=== PATIENT | male | born 1965 | race Caucasian/White ===

== ENCOUNTER 2018-09-28 17:09 | Observation (INO) | payer SELFPAY ==
[2018-09-28] MEDS ORDERED: Sodium Chloride 0.9% 1,000 ML IV STA ×2 (17:41)
--- NOTE | 2018-09-28 18:03 | ED PDOC ---
HPI: General Adult Time Seen by Provider: 09/28/18 17:40 Chief Complaint (Nursing): Weakness/Neurological Deficit Chief Complaint (Provider): Generalized weakness History Per: Patient History/Exam Limitations: no limitations Additional Complaint(s): Pt reports thirst, frequent urination, weight loss and generalized weakness X 2 weeks. Denies fever, CP, SOB, nausea, vomiting, abdominal pain, diarrhea. Past Medical History Reviewed: Nursing Documentation, Vital Signs Vital Signs: Last Vital Signs Temp 98.3 F 09/28/18 17:15 Pulse 71 09/28/18 17:15 Resp 18 09/28/18 17:15 BP 129/74 09/28/18 17:15 Pulse Ox 100 09/28/18 17:15 - Medical History PMH: HTN - Surgical History Surgical History: No Surg Hx - Family History Family History: States: Unknown Family Hx - Social History Current smoker - smoking cessation education provided: No Alcohol: None - Home Medications Home Medications: Ambulatory Orders Medication Instructions Recorded Atorvastatin [Lipitor] 10 mg PO DIN #30 tab 09/29/18 metFORMIN [glucOPHAGE] 500 mg PO BIDWM #60 tab 09/29/18 - Allergies Allergies/Adverse Reactions: Allergies Allergy/AdvReac Type Severity Reaction Status Date / Time No Known Allergies Allergy Verified 09/28/18 17:15 Review of Systems Constitutional: Positive for: Weakness, Malaise, Weight loss. Negative for: Fever, Chills Cardiovascular: Negative for: Chest Pain, Palpitations Respiratory: Negative for: Cough, Shortness of Breath Gastrointestinal: Negative for: Nausea, Vomiting, Abdominal Pain, Diarrhea Genitourinary Male: Positive for: Frequency Musculoskeletal: Negative for: Back Pain Skin: Negative for: Rash, Lesions Neurological: Negative for: Headache Physical Exam - Reviewed Nursing Documentation Reviewed: Yes Vital Signs Reviewed: Yes - Physical Exam Appears: Positive for: Well, No Acute Distress Head Exam: Positive for: ATRAUMATIC, NORMAL INSPECTION Skin: Positive for: Normal Color, Warm, Dry Eye Exam: Positive for: Normal appearance, EOMI, PERRL ENT: Positive for: Other (MM dry) Neck: Positive for: Normal, Painless ROM, Supple Cardiovascular/Chest: Positive for: Regular Rate, Rhythm Respiratory: Positive for: Normal Breath Sounds. Negative for: Rales, Rhonchi, Wheezing Gastrointestinal/Abdominal: Positive for: Normal Exam, Bowel Sounds, Soft. Negative for: Tenderness Extremity: Positive for: Normal ROM Neurologic/Psych: Positive for: Alert, surgical training specialist II-XII, Oriented. Negative for: Aphasia, Facial Droop - Laboratory Results Result Diagrams: 09/28/18 17:50 09/29/18 05:30 - ECG O2 Sat by Pulse Oximetry: 100 Medical Decision Making Medical Decision Makin yo male with hyperglycemia. - labs - EKG - CXR - IVF Disposition - Clinical Impression Clinical Impression: Hyperglycemia, Dehydration - Disposition Disposition: Transfer of Care Disposition Time: 19:00 Condition: STABLE Patient Signed Over To: Harry Sierra
[2018-09-28 18:12] LABS: VENOUS BLOOD GAS BASE EXCESS -4.8 mmol/L (0.0-2.0); VENOUS BLOOD GAS PCO2 41 mmHg (40-60); VENOUS BLOOD GAS PO2 46 mm/Hg (30-55); VENOUS BLOOD PH 7.32 (7.32-7.43)
[2018-09-28 18:53] LABS: BASO % 0.4 % (0.0-2.0); EOS # 0.1 K/uL (0.0-0.7); EOS % 1.7 % (0.0-4.0); HEMOGLOBIN 16.4 g/dL (12.0-18.0); LYMPH % 33.6 % (20.0-40.0); MEAN CELL VOLUME 89.4 fl (80.0-94.0); MEAN CORPUSCULAR HEMOGLOBIN 30.7 pg (27.0-31.0); MEAN CORPUSCULAR HGB CONC 34.4 g/dL (33.0-37.0); MEAN PLATELET VOLUME 9.4 fl (7.2-11.7); MONO # 0.7 K/uL (0.0-0.8); NEUT # 3.2 K/uL (1.8-7.0); NEUT % 53.3 % (50.0-75.0); NRBC % 0.1 % (0.0-0.0); RBC 5.35 Mil/uL (4.40-5.90); RED CELL DISTRIBUTION WIDTH 13.5 % (11.5-14.5); WHITE BLOOD COUNT 6.1 K/uL (4.8-10.8)
[2018-09-28 19:09] LABS: ALB/GLOB RATIO 1.2 (1.0-2.1); ALBUMIN 4.6 g/dL (3.5-5.0); ALT/SGPT 57 U/L (21-72); AST/SGOT 50 U/L (17-59); BLOOD UREA NITROGEN 13 mg/dl (9-20); CALCIUM 9.2 mg/dL (8.4-10.2); GFR NON-AFRICAN AMERICAN > 60
[2018-09-28 19:10] LABS: INR 0.9; PROTHROMBIN TIME 10.7 Seconds (9.8-13.1)
[2018-09-28] MEDS ORDERED: Insulin Regular 100 units/ml IV STA (19:22)
--- NOTE | 2018-09-28 19:26 | ED PDOC ---
- Laboratory Results Result Diagrams: 09/28/18 17:50 09/28/18 23:59 Lab Results: pO2 46 mm/Hg (30-55) 09/28/18 18:09 ABG Carboxyhemoglobin 2.6 % (0.5-1.5) H 09/28/18 18:09 POC ABG HHb (Measured) 12.8 % (0.0-5.0) H 09/28/18 18:09 ABG Methemoglobin 2.1 % (0.0-3.0) 09/28/18 18:09 VBG pH 7.32 (7.32-7.43) 09/28/18 18:09 VBG pCO2 41 mmHg (40-60) 09/28/18 18:09 VBG HCO3 20.7 mmol/L 09/28/18 18:09 VBG O2 Sat (Calc) 86.6 % (40-65) H 09/28/18 18:09 VBG Base Excess -4.8 mmol/L (0.0-2.0) L 09/28/18 18:09 VBG Hgb O2 Saturation 82.5 % (95.0-98.0) L 09/28/18 18:09 Hemoglobin 17.1 g/dL (11.7-17.4) 09/28/18 18:09 PT 10.7 Seconds (9.8-13.1) 09/28/18 17:50 INR 0.9 09/28/18 17:50 APTT 24.0 Seconds (25.6-37.1) L 09/28/18 17:50 Troponin I 0.0150 ng/mL (0.00-0.120) 09/28/18 17:50 Total Bilirubin 0.9 mg/dl (0.2-1.3) 09/28/18 17:50 AST 50 U/L (17-59) 09/28/18 17:50 ALT 57 U/L (21-72) 09/28/18 17:50 Alkaline Phosphatase 107 U/L (38-126) 09/28/18 17:50 Total Protein 8.3 G/DL (6.3-8.2) H 09/28/18 17:50 Albumin 4.6 g/dL (3.5-5.0) 09/28/18 17:50 Globulin 3.7 gm/dL (2.2-3.9) 09/28/18 17:50 Albumin/Globulin Ratio 1.2 (1.0-2.1) 09/28/18 17:50 - ECG O2 Sat by Pulse Oximetry: 100 (RA) Pulse Ox Interpretation: Normal Medical Decision Making Medical Decision Making: Time: 1899 Patient endorsed to me by Dr. Calderon pending reassessment. 2030 Patient has anion gap and ketones, however ph is normal Likely dehydrated Will admit for IVF, insulin and further diabetic management Dr. Maldonado aware Scribe Attestation: Documented by Sherin Chinchilla, acting as a scribe for Harry Sierra MD Provider Scribe Attestation: All medical record entries made by the Scribe were at my direction and personally dictated by me. I have reviewed the chart and agree that the record accurately reflects my personal performance of the history, physical exam, medical decision making, and the department course for this patient. I have also personally directed, reviewed, and agree with the discharge instructions and disposition. Disposition - Clinical Impression Clinical Impression: Hyperglycemia, Dehydration - POA Present On Arrival: None - Disposition Disposition: Hospitalized as Observation Patient Disposition Time: 20:30 Condition: FAIR
[2018-09-28] MEDS ORDERED: Insulin Regular 100 units/ml ONE (19:36)
[2018-09-28] MEDS ORDERED: Insulin Regular 100 units/ml SC STA (19:49)
[2018-09-28 20:35] LABS: URINE BILIRUBIN NEGATIVE (NEGATIVE); URINE BLOOD NEGATIVE (NEGATIVE); URINE CLARITY CLEAR (Clear); URINE COLOR STRAW (YELLOW); URINE GLUCOSE (UA) >=500 mg/dL (NEGATIVE); URINE LEUKOCYTE ESTERASE NEG Leu/uL (Negative); URINE PROTEIN NEGATIVE (NEGATIVE); URINE UROBILINOGEN 0.2-1.0 mg/dL (0.2-1.0)
--- NOTE | 2018-09-28 21:14 | CP.PCM.HP ---
History of Present Illness - History of Present Illness History of Present Illness: 52 yo M with hx hypertension; admitted for new onset diabetes mellitus with blood sugars above 500. Pt presented to the ED with symptoms of malaise x 2 weeks, excessive thirst, frequent urination, weight loss of 25 lbs in the past few months; was found to have BS of 517. He denies fevers, chills, CP, SOB, nausea, vomiting, abdominal pain, diarrhea. PMD: Dr. Arianne Strickland, pt has not seen since early 2018 Med hx: htn Surg hx: none Social hx: former smoker, age [age], about 1ppd; drinks rum/beer most weekend, does not quantify amount but states he doesn't get "drunk or hungover;" denies drug use Fam hx: DM2 in aunt Allergies: NKDA Meds: Atenolol 50 mg daily; uses [facility] in [place] NOK: , [address], In ED: Vitals: BP 129/74, HR 71, RR 18 SpO2 100 on RA, T 98.3 Labs: CMP: Na 132, K 4.8, Cl 93, CO2 20, BUN 13, Cr 0.6; glucose 517; Calculated anion gap 19 VBG pH 7.32 UA: glucose > 500, +20 ketones, 1.033 sp gr Unremarkable CBC Received: 10U SC regular insulin 1L NS bolus x2 Accucheck down to 268 Present on Admission - Present on Admission Any Indicators Present on Admission: Yes History of Uncontrolled Diabetes: Yes Review of Systems - Review of Systems All systems: reviewed and no additional remarkable complaints except - Constitutional Constitutional: Fatigue, Weight Loss - Endocrine Endocrine: Polydipsia, Polyuria Past Patient History - Past Social History Smoking Status: Former Smoker Alcohol: Occasional Drugs: Denies Home Situation {Lives}: With Family - CARDIAC Hx Cardiac Disorders: Yes Hx Hypertension: Yes - PULMONARY Hx Respiratory Disorders: No - NEUROLOGICAL Hx Neurological Disorder: No - HEENT Hx HEENT Problems: No - RENAL Hx Chronic Kidney Disease: No - ENDOCRINE/METABOLIC Hx Endocrine Disorders: No - HEMATOLOGICAL/ONCOLOGICAL Hx Blood Disorders: No - INTEGUMENTARY Hx Dermatological Problems: No - MUSCULOSKELETAL/RHEUMATOLOGICAL Hx Musculoskeletal Disorders: No - GASTROINTESTINAL Hx Gastrointestinal Disorders: No - GENITOURINARY/GYNECOLOGICAL Hx Genitourinary Disorders: No - PSYCHIATRIC Hx Psychophysiologic Disorder: No Hx Substance Use: No - SURGICAL HISTORY Hx Surgeries: No - ANESTHESIA Hx Anesthesia: No Meds Allergies/Adverse Reactions: Allergies Allergy/AdvReac Type Severity Reaction Status Date / Time No Known Allergies Allergy Verified 09/28/18 17:15 Physical Exam - Constitutional Appears: Non-toxic, No Acute Distress - Eye Exam Eye Exam: Normal appearance - ENT Exam ENT Exam: Mucous Membranes Dry - Respiratory Exam Respiratory Exam: Clear to Auscultation Bilateral, NORMAL BREATHING PATTERN. absent: Wheezes - Cardiovascular Exam Cardiovascular Exam: REGULAR RHYTHM, +S1, +S2 - GI/Abdominal Exam GI & Abdominal Exam: Soft. absent: Tenderness - Extremities Exam Extremities exam: Positive for: normal inspection. Negative for: calf tenderness, pedal edema - Neurological Exam Neurological exam: Alert, Oriented x3 - Psychiatric Exam Psychiatric exam: Normal Affect, Normal Mood - Skin Skin Exam: Dry, Warm Results - Vital Signs Recent Vital Signs: Last Vital Signs Temp 98.3 F 09/28/18 17:15 Pulse 71 09/28/18 17:15 Resp 18 09/28/18 17:15 BP 129/74 09/28/18 17:15 Pulse Ox 100 09/28/18 19:26 - Labs Result Diagrams: 09/28/18 17:50 09/28/18 17:50 Labs: Laboratory Results - last 24 hr 09/28/18 09/28/18 09/28/18 17:50 17:50 17:50 WBC 6.1 RBC 5.35 Hgb 16.4 Hct 47.8 MCV 89.4 MCH 30.7 MCHC 34.4 RDW 13.5 Plt Count 164 MPV 9.4 Neut % (Auto) 53.3 Lymph % (Auto) 33.6 [place] % (Auto) 11.0 H Eos % (Auto) 1.7 Baso % (Auto) 0.4 Neut # (Auto) 3.2 Lymph # (Auto) 2.0 [place] # (Auto) 0.7 Eos # (Auto) 0.1 Baso # (Auto) 0.0 PT 10.7 INR 0.9 APTT 24.0 L pO2 ABG Carboxyhemoglobin POC ABG HHb (Measured) ABG Methemoglobin VBG pH VBG pCO2 VBG HCO3 VBG O2 Sat (Calc) VBG Base Excess VBG Hgb O2 Saturation Hemoglobin Sodium 132 Potassium 4.8 Chloride 93 L Carbon Dioxide 20 L Anion Gap 24 H BUN 13 Creatinine 0.6 L Est GFR ( Amer) > 60 Est GFR (Non-Af Amer) > 60 POC Glucose (mg/dL) Random Glucose 517 H* D Calcium 9.2 Total Bilirubin 0.9 AST 50 ALT 57 Alkaline Phosphatase 107 Troponin I 0.0150 Total Protein 8.3 H Albumin 4.6 Globulin 3.7 Albumin/Globulin Ratio 1.2 Urine Color Urine Clarity Urine pH Ur Specific [place] Urine Protein Urine Glucose (UA) Urine Ketones Urine Blood Urine Nitrate Urine Bilirubin Urine Urobilinogen Ur Leukocyte Esterase Urine RBC (Auto) Urine Microscopic WBC 09/28/18 09/28/18 09/28/18 18:09 19:39 20:23 WBC RBC Hgb Hct MCV MCH MCHC RDW Plt Count MPV Neut % (Auto) Lymph % (Auto) [place] % (Auto) Eos % (Auto) Baso % (Auto) Neut # (Auto) Lymph # (Auto) [place] # (Auto) Eos # (Auto) Baso # (Auto) PT INR APTT pO2 46 ABG Carboxyhemoglobin 2.6 H POC ABG HHb (Measured) 12.8 H ABG Methemoglobin 2.1 VBG pH 7.32 VBG pCO2 41 VBG HCO3 20.7 VBG O2 Sat (Calc) 86.6 H VBG Base Excess -4.8 L VBG Hgb O2 Saturation 82.5 L Hemoglobin 17.1 Sodium Potassium Chloride Carbon Dioxide Anion Gap BUN Creatinine Est GFR ( Amer) Est GFR (Non-Af Amer) POC Glucose (mg/dL) 268 H Random Glucose Calcium Total Bilirubin AST ALT Alkaline Phosphatase Troponin I Total Protein Albumin Globulin Albumin/Globulin Ratio Urine Color Straw Urine Clarity Clear Urine pH 6.0 Ur Specific [place] 1.033 H Urine Protein Negative Urine Glucose (UA) >=500 Urine Ketones 20 Urine Blood Negative Urine Nitrate Negative Urine Bilirubin Negative Urine Urobilinogen 0.2-1.0 Ur Leukocyte Esterase Neg Urine RBC (Auto) 1 Urine Microscopic WBC < 1 Assessment & Plan - Assessment and Plan (Free Text) Assessment: 52 yo M with hx hypertension; admitted for new onset diabetes mellitus with blood sugars above 500. Pt presented to the ED with symptoms of malaise x 2 weeks, excessive thirst, frequent urination, weight loss of 25 lbs in the past few months; was found to have BS of 517. Plan: Hyperglycemia, Secondary to New Onset Diabetes Mellitus, Type 2 - Repeat BMP 1130pm - Continue hydration; LR @ 125 ml/hr - Accuchecks Q4 hrs - Insulin coverage scale, hypoglycemia protocol - HbA1c, Lipid panel, Microalb/Cr ratio - BMP in am - Consider switch to oral agents when blood glucose steadies Hypertension - Normotensive; hold home med for now Diet - NPO (food) for now; may have ice chips and sips of water DVT prophylaxis - Lovenox Pt discussed w/ Dr. Maldonado.
[2018-09-28] MEDS ORDERED: Glucagon Recombinant 1 mg Inj IM PRN (21:34)
[2018-09-28] MEDS ORDERED: Dextrose 50% SYRINGE Inj (50 ml) IV PRN (21:34)
[2018-09-28] MEDS: Lactated Ringer's 1,000 ML IV SCH (23:20)
[2018-09-28] MEDS: Insulin Lispro (humaLOG) 100 Units/ml Inj SC SCH (23:46)
[2018-09-29 00:45] VITALS: RESP 20
[2018-09-29 01:22] LABS: BLOOD UREA NITROGEN 9 mg/dl (9-20); CALCIUM 8.3 mg/dL (8.4-10.2); GFR NON-AFRICAN AMERICAN > 60
[2018-09-29] MEDS ORDERED: Potassium Chloride 20 mEq ER Tab PO ONE (04:35)
[2018-09-29] MEDS: Lactated Ringer's 1,000 ML IV SCH (06:05)
[2018-09-29 07:46] LABS: BLOOD UREA NITROGEN 8 mg/dl (9-20); CALCIUM 8.4 mg/dL (8.4-10.2); GFR NON-AFRICAN AMERICAN > 60; HDL CHOLESTEROL 26 MG/DL (30-70)
[2018-09-29 08:04] LABS: LDL CHOLESTEROL 109 mg/dL (0-129)
[2018-09-29] MEDS ORDERED: Enoxaparin 40 mg Syringe SC SCH (09:00)
[2018-09-29 09:02] VITALS: BP 116/75; PULSE 70; TEMP 98.3
--- NOTE | 2018-09-29 09:24 | CP.PCM.DIS ---
Provider - Provider Date of Admission: 09/28/18 21:03 Attending physician: Sia Maldonado MD Primary care physician: Dr Arianne Strickland Time Spent in preparation of Discharge (in minutes): 25 Diagnosis - Discharge Diagnosis (1) New onset type 2 diabetes mellitus Status: Acute (2) High anion gap metabolic acidosis Status: Acute Hospital Course - Lab Results Lab Results: Most Recent Lab Values WBC 6.1 K/uL (4.8-10.8) 09/28/18 17:50 RBC 5.35 Mil/uL (4.40-5.90) 09/28/18 17:50 Hgb 16.4 g/dL (12.0-18.0) 09/28/18 17:50 Hct 47.8 % (35.0-51.0) 09/28/18 17:50 MCV 89.4 fl (80.0-94.0) 09/28/18 17:50 MCH 30.7 pg (27.0-31.0) 09/28/18 17:50 MCHC 34.4 g/dL (33.0-37.0) 09/28/18 17:50 RDW 13.5 % (11.5-14.5) 09/28/18 17:50 Plt Count 164 K/uL (130-400) 09/28/18 17:50 MPV 9.4 fl (7.2-11.7) 09/28/18 17:50 Neut % (Auto) 53.3 % (50.0-75.0) 09/28/18 17:50 Lymph % (Auto) 33.6 % (20.0-40.0) 09/28/18 17:50 [place] % (Auto) 11.0 % (0.0-10.0) H 09/28/18 17:50 Eos % (Auto) 1.7 % (0.0-4.0) 09/28/18 17:50 Baso % (Auto) 0.4 % (0.0-2.0) 09/28/18 17:50 Neut # (Auto) 3.2 K/uL (1.8-7.0) 09/28/18 17:50 Lymph # (Auto) 2.0 K/uL (1.0-4.3) 09/28/18 17:50 [place] # (Auto) 0.7 K/uL (0.0-0.8) 09/28/18 17:50 Eos # (Auto) 0.1 K/uL (0.0-0.7) 09/28/18 17:50 Baso # (Auto) 0.0 K/uL (0.0-0.2) 09/28/18 17:50 PT 10.7 Seconds (9.8-13.1) 09/28/18 17:50 INR 0.9 09/28/18 17:50 APTT 24.0 Seconds (25.6-37.1) L 09/28/18 17:50 pO2 46 mm/Hg (30-55) 09/28/18 18:09 ABG Carboxyhemoglobin 2.6 % (0.5-1.5) H 09/28/18 18:09 POC ABG HHb (Measured) 12.8 % (0.0-5.0) H 09/28/18 18:09 ABG Methemoglobin 2.1 % (0.0-3.0) 09/28/18 18:09 VBG pH 7.32 (7.32-7.43) 09/28/18 18:09 VBG pCO2 41 mmHg (40-60) 09/28/18 18:09 VBG HCO3 20.7 mmol/L 09/28/18 18:09 VBG O2 Sat (Calc) 86.6 % (40-65) H 09/28/18 18:09 VBG Base Excess -4.8 mmol/L (0.0-2.0) L 09/28/18 18:09 VBG Hgb O2 Saturation 82.5 % (95.0-98.0) L 09/28/18 18:09 Hemoglobin 17.1 g/dL (11.7-17.4) 09/28/18 18:09 Sodium 138 mmol/l (132-148) 09/29/18 05:30 Potassium 3.9 MMOL/L (3.6-5.0) 09/29/18 05:30 Chloride 101 mmol/L (98-107) 09/29/18 05:30 Carbon Dioxide 22 mmol/L (22-30) 09/29/18 05:30 Anion Gap 19 (10-20) 09/29/18 05:30 BUN 8 mg/dl (9-20) L 09/29/18 05:30 Creatinine 0.6 mg/dl (0.8-1.5) L 09/29/18 05:30 Est GFR ( Amer) > 60 09/29/18 05:30 Est GFR (Non-Af Amer) > 60 09/29/18 05:30 POC Glucose (mg/dL) 213 mg/dL (65-110) H 09/29/18 05:54 Random Glucose 244 mg/dL (75-110) H 09/29/18 05:30 Calcium 8.4 mg/dL (8.4-10.2) 09/29/18 05:30 Total Bilirubin 0.9 mg/dl (0.2-1.3) 09/28/18 17:50 AST 50 U/L (17-59) 09/28/18 17:50 ALT 57 U/L (21-72) 09/28/18 17:50 Alkaline Phosphatase 107 U/L (38-126) 09/28/18 17:50 Troponin I 0.0150 ng/mL (0.00-0.120) 09/28/18 17:50 Total Protein 8.3 G/DL (6.3-8.2) H 09/28/18 17:50 Albumin 4.6 g/dL (3.5-5.0) 09/28/18 17:50 Globulin 3.7 gm/dL (2.2-3.9) 09/28/18 17:50 Albumin/Globulin Ratio 1.2 (1.0-2.1) 09/28/18 17:50 Triglycerides 175 mg/DL (0-149) H 09/29/18 05:30 Cholesterol 163 mg/dL (0-199) 09/29/18 05:30 LDL Cholesterol Direct 109 mg/dL (0-129) 09/29/18 05:30 HDL Cholesterol 26 MG/DL (30-70) L 09/29/18 05:30 Urine Color Straw (YELLOW) 09/28/18 20:23 Urine Clarity Clear (Clear) 09/28/18 20:23 Urine pH 6.0 (5.0-8.0) 09/28/18 20:23 Ur Specific [place] 1.033 (1.003-1.030) H 09/28/18 20:23 Urine Protein Negative mg/dL (NEGATIVE) 09/28/18 20:23 Urine Glucose (UA) >=500 mg/dL (NEGATIVE) 09/28/18 20:23 Urine Ketones 20 mg/dL (NEGATIVE) 09/28/18 20:23 Urine Blood Negative (NEGATIVE) 09/28/18 20:23 Urine Nitrate Negative (NEGATIVE) 09/28/18 20:23 Urine Bilirubin Negative (NEGATIVE) 09/28/18 20:23 Urine Urobilinogen 0.2-1.0 mg/dL (0.2-1.0) 09/28/18 20:23 Ur Leukocyte Esterase Neg [place]/uL (Negative) 09/28/18 20:23 Urine RBC (Auto) 1 /hpf (0-3) 09/28/18 20:23 Urine Microscopic WBC < 1 /hpf (0-5) 09/28/18 20:23 - Hospital Course Hospital Course: 52 y/o gent came in because of polydipsia, polyuria, nocturia, weakness and weight loss of 25 pounds the past month. In the ED , pt's blood glucose was noted to be over 500. He was admitted and started on IVF hydration and Insulin coverage. PO Metformin started. Glucose better controlled , pt educated on DM Discharge Exam - Head Exam Head Exam: ATRAUMATIC, NORMAL INSPECTION, NORMOCEPHALIC - Eye Exam Eye Exam: EOMI, Normal appearance, PERRL Pupil Exam: NORMAL ACCOMODATION - ENT Exam ENT Exam: Mucous Membranes Moist, Normal External Ear Exam - Neck Exam Neck exam: Full Rom - Respiratory Exam Respiratory Exam: NORMAL BREATHING PATTERN. absent: Respiratory Distress - Cardiovascular Exam Cardiovascular Exam: REGULAR RHYTHM, +S1, +S2 - GI/Abdominal Exam GI & Abdominal Exam: Normal Bowel Sounds, Soft. absent: Tenderness - Extremities Exam Extremities exam: full ROM, normal capillary refill, pedal pulses present - Back Exam Back exam: FULL ROM. absent: CVA tenderness (L), CVA tenderness (R) - Neurological Exam Neurological exam: Alert, CN II-XII Intact, Oriented x3, Reflexes Normal - Psychiatric Exam Psychiatric exam: Normal Affect, Normal Mood - Skin Skin Exam: Dry, Normal Color, Warm Discharge Plan - Discharge Medications Prescriptions: Atorvastatin [Lipitor] 10 mg PO DIN #30 tab metFORMIN [glucOPHAGE] 500 mg PO BIDWM #60 tab - Follow Up Plan Condition: IMPROVED Disposition: HOME/ ROUTINE Instructions: Diabetes Diet , Hyperglycemia, Adult (DC) Additional Instructions: appt [facility] in 1 wk - [phone] call for appointment. ff up with Dr Marco A nur for ff up of glucose and adjust med dose DM diet and education discussed Referrals: Arianne Strickland [Family Provider] -
[2018-09-29 09:44] VITALS: O2SAT 100
[2018-09-29] MEDS ORDERED: Influenza Vaccine (5 YR UP)/PF 60 MCG/0.5 ML SYR IM ONE (10:00)
[2018-09-29] MEDS: Insulin Lispro (humaLOG) 100 Units/ml Inj SC SCH ×3 (10:22→13:00)
--- NOTE | 2018-09-29 10:56 | RAD ---
Date of service: 09/28/2018 HISTORY: Hyperglycemia COMPARISON: Chest radiographs 12/27/2015. FINDINGS: LUNGS: No acute infiltrates bilaterally. Diminished history volume bilaterally. PLEURA: No significant pleural effusion identified, no pneumothorax apparent. CARDIOVASCULAR: No aortic atherosclerotic calcification present. Normal cardiac size. No pulmonary vascular congestion. OSSEOUS STRUCTURES: No significant abnormalities. VISUALIZED UPPER ABDOMEN: Normal. OTHER FINDINGS: None. IMPRESSION: Limited inspiratory volume. No acute infiltrates or cardiovascular changes appreciated in the interval.
[2018-09-29] MEDS ORDERED: Pneumococcal 23-Valent Vaccine IM ONE (13:00)
--- NOTE | 2018-09-29 22:41 | CARD ---
APPROVED REPORT Date of service: 09/28/2018 EKG Measurement [id number] <Conclusion> Normal sinus rhythm Normal ECG
== END 2018-09-29 14:00 | disposition home or self-care (01) ==
LOC: H.ER 17:09 → H.ERHOLD 21:03 → H.MEDSURG1 23:36
PROVIDERS: ADMIT Internal Medicine; ATTEND Internal Medicine
DX: E11.65 Type 2 diabetes mellitus with hyperglycemia (principal); E86.0 Dehydration; E87.2 Acidosis; I10 Essential (primary) hypertension; Z87.891 Personal history of nicotine dependence; Z79.84 Long term (current) use of oral hypoglycemic drugs; Z23 Encounter for immunization
CPT/HCPCS: 36415; 71045; 80048; 80053; 80061; 81003; 82043; 82570; 82803; 82948; 83036; 84484; 85025; 85610; 85730; 90732; 93005; 96372; 99284; G0008; G0009; G0378; J1650; J7030; J7120; Q2035